=== PATIENT | male | born 1990 | race Caucasian/White ===

== ENCOUNTER 2022-01-27 09:05 | Emergency (ER) | payer BC ==
[2022-01-27 09:53] LABS: HEMOGLOBIN 17.3 gm/dl (14.0-17.5); RED BLOOD COUNT 4.66 M/UL (4.20-5.50); WHITE BLOOD COUNT 6.3 K/UL (4.5-11.0)
[2022-01-27 11:23] LABS: BUN/CREATININE RATIO 6 (0-10)
[2022-01-27] MEDS ORDERED: ZOFRAN ODT 4 MG4 MG PO (11:52)
== END 2022-01-27 12:42 | disposition home or self-care (01) ==
LOC: ER1 09:05
PROVIDERS: Family Medicine
DX: U07.1 COVID-19 (principal)
CPT/HCPCS: 80053; 83690; 85025; 96374; 99284; J2405